=== PATIENT | female | born 1965 ===

== ENCOUNTER 2017-07-13 10:20 | Emergency (ER) | payer BC ==
[2017-07-13 10:59] VITALS: BP 133/88
--- NOTE | 2017-07-13 11:36 | UC ---
Abdominal Pain Female HPI - HPI Summary HPI Summary: PATIENT HAS HAD ABDOMINAL PAIN INTERMITTENTLY FOR ABOUT A YEAR. BLOATING FOR THE PAST 5 MONTHS OR SO. OVER THE PAST SEVERAL WEEKS HER SYMPTOMS HAVE BEEN GETTING WORSE AND FOR THE PAST 4 OR 5 DAYS SHE HAS HAD WAVES OF EXCRUCIATING ABDOMINAL PAIN. SHE IS HAVING MULTIPLE EPISODES OF WATERY DIARRHEA DAILY AND WORSENING GERD SX WELL. SYMPTOMS ARE EXACERBATED BY FOOD. SHE REPORTS HER STOOLS ARE YELLOWISH IN COLOR AND OFTEN MUCOUSY. SHE SAW HER PCP A WEEK AGO AND HAD STOOL STUDIES DONE. SHE CALLED YESTERDAY AND HAS NOT HEARD BACK ABOUT RESULTS. SHE WAS ADVISED TO COME HERE FOR FURTHER EVALUATION. SHE IS NOW SUFFERING FROM INCONTINENCE TO STOOL. NO UNUSUAL WEIGHT LOSS OR NIGHT SWEATS. - History of Current Complaint Chief Complaint: UCGI Stated Complaint: DIARRHEA Time Seen by Provider: 07/13/17 11:09 Hx Obtained From: Patient Hx Last Menstrual Period: 20yrs Onset/Duration: Still Present Severity Initially: Moderate Severity Currently: Moderate Pain Intensity: 0 Pain Scale Used: 0-10 Numeric Location: Diffuse Radiates: No Character: Cramping, Sharp Aggravating Factor(s): Food Associated Signs and Symptoms: Positive: Diarrhea. Negative: Fever, Constipation, Blood in Stool, Urinary Symptoms, Vomiting Allergies/Adverse Reactions: Allergies Allergy/AdvReac Type Severity Reaction Status Date / Time Penicillins Allergy Unknown Verified 07/13/17 11:01 Reaction Details Home Medications: Home Medications Omeprazole CAP* [Prilosec CAP* 20 MG] 40 mg PO BID 07/13/17 [History Confirmed 07/13/17] Sucralfate TAB* [Carafate*] 1 gm PO QID 07/13/17 [History Confirmed 07/13/17] PMH/Surg Hx/FS Hx/Imm Hx Endocrine History: Hypothyroidism Cardiovascular History: Hypertension Respiratory History: Asthma GI/ History: Gastroesophageal Reflux - Surgical History Surgical History: Yes Surgery Procedure, Year, and Place: 1993 [place] [facility] [place] , [facility]. LEFT OOPHORECTOMY, [facility] - Family History Known Family History: Positive: Hypertension Family History: COLON CANCER - FATHER - Social History Alcohol Use: Occasionally Substance Use Type: None Smoking Status (MU): Never Smoked Tobacco Review of Systems Constitutional: Negative Respiratory: Negative Cardiovascular: Negative Gastrointestinal: Abdominal Pain, Diarrhea, Nausea, Other - INCONTINENCE TO STOOL Genitourinary: Negative All Other Systems Reviewed And Are Negative: Yes Physical Exam Triage Information Reviewed: Yes Appearance: Well-Appearing, No Pain Distress, Well-Nourished Vital Signs: Initial Vital Signs Temp 98.3 F 07/13/17 10:46 Pulse 73 07/13/17 10:46 Resp 18 07/13/17 10:46 BP 133/88 07/13/17 10:46 Pulse Ox 100 07/13/17 10:46 Vital Signs Reviewed: Yes Eyes: Positive: Conjunctiva Clear ENT: Positive: Hearing grossly normal, Pharynx normal Neck: Positive: Supple, Nontender, No Lymphadenopathy Respiratory Exam: Normal Cardiovascular Exam: Normal Abdomen Description: Positive: Soft, Distended - MILDLY, Other: - MILDLY TENDER DIFFUSELY. NO REBOUND OR RIGIDITY. Negative: CVA Tenderness (R), CVA Tenderness (L), Guarding Bowel Sounds: Positive: Hyperactive Musculoskeletal: Positive: No Edema Neurological: Positive: Alert Psychological: Positive: Age Appropriate Behavior Skin: Negative: rashes Abd Pain Female Course/Dx - Course Course Of Treatment: CONTACTED [facility]. STOOL STUDIES NEGATIVE FOR SALMONELLA, SHIGELLA, CAMPLYLOBACER, E.COLI, GIARDIA, CRYPTO. POSITIVE FOR LACTOFERRIN. TSH LOW AT 0.26. CBC, CMP, LIPASE AND AMYLASE GROSSLY UNREMARKABLE. GIVEN WORSENING SX AND RECENT INCONTINENCE - CONCERN FOR MORE SERIOUS UNDERLYING CONDITION. ADVISED ED EVAL. PT DECLINES TRANSFER TO ED. ADVISED THAT SHE COULD BE RISKING WORSENING OF HER CONDITION THAT COULD POSE A THREAT TO HER LIFE, HEALTH AND MEDICAL SAFETY. SHE VERBALIZES UNDERSTANDING AND CONTINUES TO DECLINE TRANSFER. STATES SHE WILL GO IF SHE CONTINUES TO WORSEN. - Differential Dx/Diagnosis Provider Diagnoses: ABDOMINAL PAIN/DIARRHEA/STOOL INCONTINENCE Discharge - Sign-Out/Discharge Documenting (check all that apply): Discharge/Admit/Transfer - Discharge Plan Condition: Stable Disposition: HOME Patient Education Materials: Abdominal Pain (ED) Referrals: Dafne Hall MD [Primary Care Provider] - 1 Week Additional Instructions: YOUR STOOL STUDIES WERE NEGATIVE FOR SALMONELLA, SHIGELLA, CAMPLYLOBACER, E COLI , GIARDIA AND CRYPTOSPORIDIUM. POSITIVE FOR LACTOFERRIN WHICH IS A NONSPECIFIC MARKER OF INTESTINAL INFLAMMATION. TSH LOW AT 0.26. THIS WILL NEED TO BE FOLLOWED UP BY YOUR PCP. CBC, CMP, LIPASE AND AMYLASE GROSSLY UNREMARKABLE. GIVEN YOUR WORSENING SYMPTOMS AND ESPECIALLY IN LIGHT OF YOUR RECENT INCONTINENCE I'M CONCERNED FOR A MORE SERIOUS UNDERLYING CONDITION. RECOMMEND EVALUATION AT THE ED. YOU HAVE DECLINED TRANSFER TO THE ED TODAY WITH THE UNDERSTANDING THAT YOUR CONDITION MAY WORSEN LEADING TO A POOR OUTCOME. LOW THRESHOLD FOR PRESENTING TO THE ED. - Billing Disposition and Condition Condition: STABLE Disposition: HOME
== END 2017-07-13 12:46 | disposition home or self-care (01) ==
LOC: UCCORT 10:20
DX: R10.9 Unspecified abdominal pain (principal); R19.7 Diarrhea, unspecified; R15.9 Full incontinence of feces; Z88.0 Allergy status to penicillin
CPT/HCPCS: 99202; G0463